=== PATIENT | female | born 1990 | race Caucasian/White ===

== ENCOUNTER 2018-01-27 00:55 | Inpatient (IN) | payer BC, OTHER ==
[~2018-01-27] VITALS: Ht 162.6 cm; Wt 54.4 kg
--- NOTE | 2018-01-27 01:30 | NUR ---
PRE-ADMISSION NOTE: Patient is a 27 year old female alert and oriented x4, ambulatory with steady gait. Speech is soft and clear. The patient appears intoxicated. VS: T: 98.3, BP: 111/78, HR 111, RR 18, RA O2SAT: 97%. Headache: "6/10". Patient noted to be disheveled, unkempt and uncombed. Patient denies History of Seizures. Patient reported Substance using : 1. Vodka "1 pint" daily x 8 month. Last used "1 pint" on 01/27/2018 "all day from 1200 to 2330". The patient is stable for admission. Explained rules and regulations of the unit. Will further assess patient in his room.
[2018-01-27 01:34] VITALS: BP 111/78
--- NOTE | 2018-01-27 01:34 | NUR ---
ADMISSION NOTE: Patient is a 27 year old female admitted to [facility] on 01/27/2018 at 0134 for ETOH (Vodka), withdrawal. Patient is ambulatory with steady gait. Patient is alert and oriented x4. Speech is soft and clear. Height: 5'4". Weight: 120 lb by standing scale. VS: T: 98.3, BP: 111/78, HR 111, RR 18, RA O2SAT: 97%. Headache: "6/10". Patient noted to be disheveled, unkempt and uncombed. She is appears intoxicated. Patient reports allergy to Penicillin, is on Regular Diet, Full Code, is on Fall and Seizures Precautions. Patient denies history of withdrawal-induced seizures. PMH: Anxiety, Depression, PTSD (2016). The patient denies SI/HI. Skin check done, noted with scratches on posterior the left and posterior right shoulders. Skin is warm and dry to touch. Patient reports Primary Care Physician: Dr. Bubba MD, and Psychiatrist.: MD David. UDS test provided. Blood Labs were drawn. Respirations even and unlabored. Lung Sounds are clear throughout. Patient denies SOB, cough, and chest pain. Bowel sounds active in all four quadrants. Patient stated that she starting using Alcohol every day since June,. Substance Use History: 1. Vodka "1 pint" daily x 8 month. Last used "1 pint" on 01/27/2018 "all day from 1200 to 2330". Patient reports that she admitted first time to detox treatment center. Patient verbalized, "My family have opportunity to move out in-laws house, and I want to be sober ". Patient would like to continue to residential treatment after detox. Patient also reports smoking a 1-4 of cigarettes daily. The patient not brought her home medications. Education for smoking cessation provided to patient. Patient oriented on the rules and policies of the unit, directed to his room and instructed on the use of the call light. Encouraged fluids as tolerated. Encouraged to attend activities groups in the morning. All needs met. Safety measures: Call light within reach, bed locked in lowest position, and padded rails up bilaterally. Will continue to monitor closely.
[2018-01-27] MEDS ORDERED: DICYCLOMINE HCL 20 MG TABLET PO PRN (01:45)
[2018-01-27] MEDS ORDERED: ONDANSETRON ODT 4 MG TAB.RAPDIS SL PRN (01:45)
[2018-01-27] MEDS ORDERED: LORAZEPAM 2 MG/1 ML VIAL IM PRN (01:45)
[2018-01-27] MEDS ORDERED: MAG HYDROX/AL HYDROX/SIMETH 30 ML LIQUID UDC PO PRN (01:45)
[2018-01-27] MEDS ORDERED: LOPERAMIDE HCL 2 MG CAPSULE PO PRN ×2 (01:45)
[2018-01-27] MEDS ORDERED: diphenhydrAMINE 50 MG CAPSULE PO PRN (01:45)
[2018-01-27] MEDS ORDERED: ONDANSETRON 4 MG/2 ML VIAL IM PRN (01:45)
[2018-01-27] MEDS ORDERED: MAGNESIUM HYDROXIDE 30 ML LIQUID UDC PO PRN (01:45)
[2018-01-27] MEDS ORDERED: LORAZEPAM 1 MG TABLET PO PRN ×2 (01:45)
[2018-01-27] MEDS ORDERED: MIRALAX 17 GM POWD.PACK PO PRN (01:45)
[2018-01-27 02:18] LABS: *URINE HCG, QUAL NEGATIVE (NEGATIVE)
[2018-01-27] MEDS: ACETAMINOPHEN 325 MG TABLET PO PRN ×3 (02:22→17:13)
--- NOTE | 2018-01-27 02:22 | NUR ---
PRN TYLENOL 650 MG PO AND PRN BENADRYL 50 MG PO ADMINISTRATION Patient c/o headache "6/10" and insomnia. PRN Tylenol 650 mg PO administrated for headache "6/10" at 0222, and PRN Benadryl 50 mg PO administrated for insomnia at 0221,as ordered with full glass of water. Patient tolerated well. Safe and calm environment with minimized noises was provided. All needs met. Safety measures in place: Call light within reach, bed is locked in lowest position, and padded bed rails up bilaterally. Will continue to monitor closely.
[2018-01-27] MEDS ORDERED: THIAMINE HCL 200 MG/2 ML VIAL IM ONE (03:00)
--- NOTE | 2018-01-27 03:22 | NUR ---
RE-ASSESSMENT PRN Tylenol 650 mg PO administrated for headache "6/10" at 022, and PRN Benadryl 50 mg PO administrated for insomnia at 022, and were effective. Patient is sleeping. RR: 16. Respirations are even and unlabored. All needs met. Safety measures in place: Call light within reach, bed is locked in lowest position, padded bed rails up bilaterally. Will continue to monitor closely.
[2018-01-27 04:00] VITALS: BP 96/54
[2018-01-27 04:50] LABS: *AMPHETAMINE, URINE NEGATIVE (NEGATIVE); *BARBITURATE, URINE NEGATIVE (NEGATIVE); *CANNABINOID, URINE POSITIVE (NEGATIVE); *COCCAINE, URINE NEGATIVE (NEGATIVE); *OPIATE, URINE NEGATIVE (NEGATIVE); *PHENCYCLIDINE SCREEN,URINE NEGATIVE (NEGATIVE)
[2018-01-27 05:12] LABS: BILIRUBIN,TOTAL 0.1 mg/dL (0.2-1.0); MAGNESIUM 1.9 mg/dL (1.8-2.4); POTASSIUM 3.9 mmol/L (3.5-5.1); TOTAL PROTEIN, SERUM 7.8 g/dL (6.4-8.2)
[2018-01-27 05:22] LABS: THYROID STIMULATING HORMONE 1.068 mIU/mL (0.358-3.740)
--- NOTE | 2018-01-27 07:15 | NUR ---
START OF SHIFT: PATIENT IS A 27 YR OLD FEMALE ADMITTED TO [facility] ON 01/27/18 FOR A MEDICALLY SUPERVISED WITHDRAWAL FROM ALCOHOL. SHE WAS ADMITTED ON PM SHIFT AND IS ASLEEP IN BED AT THIS TIME, BREATHING EVEN AND UNLABORED, SIDE RAILS UP X2. PRN MEDS REQUIRED ON PM SHIFT : TYLENOL AND BENADRYL. SHE HAS SLEPT FOR 5+ HOURS . PRN MEDICATION IS AVAILABLE AT THIS TIME. CONTINUE TO FOLLOW MD PLAN OF CARE.
--- NOTE | 2018-01-27 07:20 | NUR ---
END OF SHIFT NOTE Patient is a 27 year old female admitted to [facility] on 01/27/2018 at 0134 for ETOH (Vodka) withdrawal. Patient is ambulatory with steady gait. Patient is alert and oriented x4. Speech is soft and clear. Patient appears intoxicated. Patient noted to be disheveled, unkempt and uncombed. Patient reports to Penicillin, is on Regular Diet, Full Code, is on Fall and Seizures Precautions. Patient denies history of withdrawal-induced seizures. PMH: Anxiety, Depression , PTSD (2016). Patient denies SI/HI. Skin is warm and dry to touch. Skin noted with scratches on posterior the left and posterior right shoulders. PRN Tylenol 650 mg PO administrated for headache "6/10" at 0222, and PRN Benadryl 50 mg PO administrated for insomnia at 0221, and were effective. Patient slept for 3 hours, intake 500 ml, voided x1. All needs met. Safety measures in the place by hospital policy: Call light within reach, bed in the lowest position and locked, padded rails up x2. Patient endorsed to day shift nurse in stable condition, report given.
[2018-01-27 08:00] VITALS: BP 106/79
--- NOTE | 2018-01-27 08:35 | NUR ---
PRN ATIVAN/MOTRIN/TYLENOL ATIVAN 1MG PO GIVEN FOR S/S OF WITHDRAWAL CIWA 15 MOTRIN 600MG PO/TYLENOL 650MG PO GIVEN FOR HEADACHE 7/10 CONT TO MONITOR
[2018-01-27] MEDS: IBUPROFEN 600 MG TABLET PO PRN ×2 (08:37→17:12)
[2018-01-27] MEDS: MULTIVITAMINS,THERAPEUTIC TABLET PO SCH (08:37)
[2018-01-27] MEDS: FOLIC ACID 1 MG TABLET PO SCH (08:37)
[2018-01-27] MEDS: THIAMINE HCL 100 MG TABLET PO SCH (08:37)
[2018-01-27 09:07] LABS: BASOPHILS % (AUTO) 0.5 % (0.0-2.0); EOSINOPHILS # (AUTO) 0.1 K/uL (0.0-0.7); EOSINOPHILS % (AUTO) 1.8 % (0.0-7.0); HEMATOCRIT 44.7 % (31.2-41.9); HEMOGLOBIN 14.9 g/dL (10.9-14.3); LYMPHOCYTES # (AUTO) 2.5 K/uL (20.0-40.0); MEAN CORPUSCULAR HEMOGLOBIN 31.5 uug (24.7-32.8); MEAN CORPUSCULAR HGB CONC 33 g/dL (32.3-35.6); MEAN CORPUSCULAR VOLUME 94.5 fL (75.5-95.3); MONOCYTES # (AUTO) 0.5 K/uL (2.0-10.0); NEUTROPHILS # (AUTO) 2.7 K/uL (1.8-8.9); NEUTROPHILS % (AUTO) 46.7 % (38.5-71.5); PLATELET COUNT (AUTO) 220 K/uL (179-408); RED BLOOD CELL COUNT(AUTO) 4.73 MIL/uL (3.63-4.92); WHITE BLOOD COUNT (AUTO) 5.8 K/uL (3.8-11.8)
--- NOTE | 2018-01-27 09:35 | NUR ---
PRN REASSESS PATIENT IS LYING QUIETLY IN BED, HEADACHE RESOLVED 1/10 PAIN MEDICATIONS EFFECTIVE CIWA 11
[2018-01-27 12:00] VITALS: BP 125/91
--- NOTE | 2018-01-27 12:05 | NUR ---
PRN ATIVAN ATIVAN 2MG PO GIVEN FOR CIWA 17 AND S/S OF WITHDRAWAL, INCREASED ANXIETY, DECREASED ANXIETY, DIAPHORESIS AND HEADACHE. WILL REASSESS Addendum: 01/27/18 at 1518 by JOSE JOHNSON RN ERROR ON DECREASED ANXIETY
[2018-01-27] MEDS: LORAZEPAM 1 MG TABLET PO SCH ×3 (12:22→20:22)
--- NOTE | 2018-01-27 13:05 | NUR ---
PRN ATIVAN REASSESS PATIENT STATES THAT ATIVAN HAS HELPED DECREASE HER ANXIETY AND SHE FEELS LESS RESTLESS AND AGITATED
[2018-01-27] MEDS: ESCITALOPRAM OXALATE 10 MG TABLET PO SCH (14:05)
[2018-01-27 16:00] VITALS: BP 119/81
--- NOTE | 2018-01-27 17:10 | NUR ---
PRN MOTRIN/TYLENOL MOTRIN 600MG PO AND TYLENOL 650MG PO GIVEN FOR HEADACHE 10 WILL REASSESS
--- NOTE | 2018-01-27 18:10 | NUR ---
MOTRIN/TYLENOL REASSESS PATIENT STATES HEADACHE IS MUCH BETTER, 2/10 CONTINUE TO MONITOR
--- NOTE | 2018-01-27 18:45 | NUR ---
END OF SHIFT : PATIENT IS A 27 YR OLD FEMALE ADMITTED TO [facility] ON 01/27/18 FOR A MEDICALLY SUPERVISED WITHDRAWAL FROM ALCOHOL. SHE HAS BEEN PLACED ON A 5 DAY ATIVAN TAPER AND TODAY IS DAY 1. PATIENT TOLD PSYCHIATRIST THAT SHE WAS RELEASED FROM A 2 DAY PSYCHIATRIC UNIT YESTERDAY FOR SUICIDAL IDEATION BUT HAS NO CURRENT PLAN TO SELF HARM. PATIENT IS VERY DEPRESSED AND WAS STARTED ON LEXAPRO . PRN MEDICATIONS GIVEN THIS SHIFT: ATIVAN 1MG PO , ATIVAN 2MG PO, MOTRIN 600MG PO X2, TYLENOL 650MG PO X2 ( FOR HEADACHE). HER WITHDRAWAL SYMPTOMS INCLUDE : DIAPHORESIS, CHILLS, TREMORS , HEADACHE AND LACK OF APPETITE. SHE HAD A FLUID INTAKE OF 1200 ML, 3 VOIDS AND 1BM. LAST CIWA 18 @ 1600. CONTINUE TO FOLLOW MD PLAN OF CARE AND OFFER SUPPORT NEEDED. ENDORSED TO VISUAL MERCHANDISING COORDINATOR.
--- NOTE | 2018-01-27 19:40 | NUR ---
Start of Shift Patient Received. Patient is noted in the activities room participating in a group meeting. Per endorsement, patient continues on a modified Ativan taper. Patient was seen and evaluated by MD with right lower abdomen pain with CT orders to rule out appendicitis. Currently awaiting results. Patient received PRN Bentyl with medication noted to be effective. Last noted CIWA 11. All needs attended to promptly. Will continue to monitor. Addendum: 01/28/18 at 0100 by CONRAD ROWLAND LVN ENTERED IN ERROR
--- NOTE | 2018-01-27 19:40 | NUR ---
Start of Shift Patient Received. Patient is noted in her room awake alert and verbally responsive. Breathing even and non labored. Per endorsement, patient continues on a modified Ativan taper. She received multiple PRN medications including PRN Ativan 1mg, Ativan 2mg, Motrin X2, Tylenol X2 with medication noted to be effective. Last noted CIWA 18. All needs attended to promptly. Will continue plan of care as ordered.
[2018-01-27 20:19] VITALS: BP 114/83
[2018-01-27] MEDS: QUETIAPINE FUMARATE 25 MG TABLET PO SCH (20:22)
[2018-01-28 00:13] VITALS: BP 114/79
[2018-01-28 04:26] VITALS: BP 111/73
--- NOTE | 2018-01-28 07:16 | NUR ---
End of Shift Patient is noted in bed sleeping. Breathing even and non labored. patient continues on a modified Ativan taper. No PRN medication administered. Patient is noted with flat affect and depressed mood. Last noted CIWA 15. Patient is noted to sleep a total of 6 hours. All needs attended to promptly. Will continue plan of care as ordered.
--- NOTE | 2018-01-28 07:30 | NUR ---
Start of Shift Note Pt. is a 27 y/o female admitted for the medically managed withdrawal from ETOH. Pt. was placed on a 4 day ativan taper to manage her withdrawal symptoms. Endorse pt.'s behavior from previous shift was depressed with a sad effect. Received pt. in room laying bed sitting up with her eyes open. Pt. presents with flushed facial skin, fine hand tremors, anxious with a depressed affect. Upon approach pt. is guarded and withdrawn. Pt. hair is unkempt and she has dark rings around her eyes. Educated pt. on treatment plan and medication regiment. Pt. verbalized understanding. No PRN's given during previous shift. Last CIWA was 15. Encouraged pt. to verbalize concerns and emotions. Will continue to monitor pt.'s behavior for safety.
[2018-01-28 08:00] VITALS: BP 114/74
[2018-01-28] MEDS ORDERED: TUBERCULIN,PURIF.PROT.DERIV. 5 TU/0.1 ML TEST ID ONE (09:00)
[2018-01-28] MEDS: THIAMINE HCL 100 MG TABLET PO SCH (09:07)
[2018-01-28] MEDS: ESCITALOPRAM OXALATE 10 MG TABLET PO SCH (09:07)
[2018-01-28] MEDS: FOLIC ACID 1 MG TABLET PO SCH (09:08)
[2018-01-28] MEDS: LORAZEPAM 1 MG TABLET PO SCH ×2 (09:08→12:00)
[2018-01-28] MEDS: MULTIVITAMINS,THERAPEUTIC TABLET PO SCH (09:08)
[2018-01-28] MEDS: CLONIDINE HCL 0.1 MG TABLET PO PRN ×2 (09:35→17:11)
[2018-01-28] MEDS: ACETAMINOPHEN 325 MG TABLET PO PRN (09:35)
--- NOTE | 2018-01-28 09:35 | NUR ---
PRN Medication During morning medication pass, pt. verbalize a headache of 4/10 and feelings of anxiety. Pt. given Clonidine 0.1mg, Tylenol 650mg at this time to help manage her anxiety and headache. Will continue to monitor pt.'s behavior for safety and medication effectiveness.
--- NOTE | 2018-01-28 10:35 | NUR ---
PRN Re-Assessment Pt. in room getting ready to step out into the [address]. Questioned pt. regarding anxiety and headache. Pt. verbalized "I feel much better thank you." Pt. currently rates pain of 0/10. Medication effective, will continue to monitor pt.'s behavior for safety.
[2018-01-28 12:00] VITALS: BP 120/84
[2018-01-28 12:06] LABS: HEPATITIS B SURFACE AG Negative (Negative)
[2018-01-28 16:00] VITALS: BP 119/78
[2018-01-28] MEDS ORDERED: LORAZEPAM 1 MG TABLET PO SCH ×2 (17:00→21:00)
--- NOTE | 2018-01-28 17:11 | NUR ---
PRN Medication During medication pass pt. verbalized feelings of anxiety. Gave pt. Clonidine 0.1mg PO at this time. Will continue to monitor pt.'s behavior for safety and medication effectiveness.
--- NOTE | 2018-01-28 18:15 | NUR ---
PRN Re-Assessment Pt. states she feels much less anxious than before. Medication effective. Will continue to monitor pt.'s behavior for safety.
[2018-01-28 20:00] VITALS: BP 105/72
--- NOTE | 2018-01-28 20:00 | NUR ---
START OF SHIFT NOTE RECEIVED REPORT FROM DAY SHIFT NURSE. PATIENT IS A 27 YEAR OLD FEMALE ADMITTED FOR ETOH WITHDRAWAL. PATIENT IS ON 4 DAY MODIFIED ATIVAN TAPER. PATIENT WAS GIVEN PRN CLONIDINE. LAST CIWA 15. PATIENT PRESENTS WITH FLAT AFFECT, DEPRESSED MOOD, AVOIDANT EYE CONTACT, DISHEVELED, EMOTIONAL , GUARDED, RESTRICTED, CRYING AND ANXIOUS . RELAXATION TECHNIQUE AND POSITIVE ENCOURAGEMENT PROVIDED. SAFETY MEASURES IN PLACE. CALL LIGHT IN REACH. WILL CONTINUE TO MONITOR.
[2018-01-28] MEDS: QUETIAPINE FUMARATE 25 MG TABLET PO SCH (20:05)
[2018-01-29] VITALS: BP 103/67
--- NOTE | 2018-01-29 | NUR ---
CIWA DEFERRED PATIENT SLEEPING. RESPIRATION EVEN AND UNLABORED. WILL CONTINUE TO MONITOR.
[2018-01-29 04:00] VITALS: BP 94/54
--- NOTE | 2018-01-29 04:00 | NUR ---
CIWA DEFERRED PATIENT SLEEPING. RESPIRATION EVEN AND UNLABORED. WILL CONTINUE TO MONITOR.
--- NOTE | 2018-01-29 07:23 | NUR ---
END OF SHIFT NOTE PATIENT SLEPT 8 HOURS. FLUID INTAKE 500 ML. VOIDED X 2. NO BM. MONITORED PATIENT THROUGHOUT SHIFT. PATIENT PRESENTED WITH FLAT AFFECT, DEPRESSED MOOD, AVOIDANT EYE CONTACT, DISHEVELED, EMOTIONAL , GUARDED, RESTRICTED, CRYING AND ANXIOUS . RELAXATION TECHNIQUE AND POSITIVE ENCOURAGEMENT PROVIDED. IN HER ROOM MOST OF THE SHIFT, SHE TENDS TO ISOLATE SELF. ATIVAN TAPER GIVEN ORDERED WITH NO ADVERSE REACTION. PATIENT DID NOT REQUIRE PRN MEDICATION . SAFETY MEASURES IN PLACE. CALL LIGHT IN REACH. WILL CONTINUE TO MONITOR. LAST CIWA 14.
--- NOTE | 2018-01-29 07:50 | NUR ---
START OF SHIFT NOTE Received report from night nurse,patient admitted for ETOH withdrawal and patient continues with 5 days Ativan taper tolerating well. Per endorsement patient did not receive any PRN'S, slept for 8 hours, last CIWA was 14. Received patient alert awake, anxious, agitated,sweats, flat facial expression, bilateral hand tremors noted, linens and empty bottles on the floor. Patient due for schedule medications. Educated patient about importance of attending groups activities. Patient verbalized understanding. All safety measures in place. Will cont to monitor.
[2018-01-29 08:00] VITALS: BP 115/74
[2018-01-29] MEDS: ESCITALOPRAM OXALATE 10 MG TABLET PO SCH (08:23)
[2018-01-29] MEDS: MULTIVITAMINS,THERAPEUTIC TABLET PO SCH (08:23)
[2018-01-29] MEDS: THIAMINE HCL 100 MG TABLET PO SCH (08:23)
[2018-01-29] MEDS: FOLIC ACID 1 MG TABLET PO SCH (08:23)
[2018-01-29] MEDS: LORAZEPAM 1 MG TABLET PO SCH ×3 (08:24→21:05)
[2018-01-29 12:00] VITALS: BP 124/88
[2018-01-29 16:00] VITALS: BP 118/82
--- NOTE | 2018-01-29 18:50 | NUR ---
PRN TYLENOL/MOTRIN MOTRIN 600MG PO/ TYLENOL 650MG PO GIVEN FOR HEADACHE 02/21 WILL ENDORSE TO COMMISSIONED SALES ASSOCIATE TO REASSESS
[2018-01-29] MEDS: IBUPROFEN 600 MG TABLET PO PRN (18:51)
[2018-01-29] MEDS: ACETAMINOPHEN 325 MG TABLET PO PRN (18:52)
--- NOTE | 2018-01-29 19:11 | NUR ---
END OF SHIFT NOTE Patient is AOX4. Patient is a 27 year old female admitted for ETOH withdrawal. Patient continues with Ativan taper tolerating well. During shift patient received PRN Tylenol and Motrin will endorse to night nurse to reassess the pt. Patient attended groups activities. Patient remained compliant with treatment plan and medication regime. All safety measures secured. Met all needs. Endorse pt to night nurse in stable condition.
--- NOTE | 2018-01-29 19:30 | NUR ---
START OF SHIFT Pt is a 27 year old female admitted for ETOH withdrawal.She is A/A/O X 4; continues with Ativan taper and is tolerating well. During day shift patient received PRN Tylenol and Motrin and states that she does not have any pain at this time. Pt is compliant with treatment plan and medication regime. All safety measures in place with call [place] within reach,will continue to monitor.
[2018-01-29 20:00] VITALS: BP 137/83
[2018-01-29] MEDS: QUETIAPINE FUMARATE 25 MG TABLET PO SCH (21:06)
[2018-01-30] VITALS: BP 103/67
--- NOTE | 2018-01-30 | NUR ---
CIWA DEFERRED PATIENT SLEEPING COMFORTABLY IN BED. RESPIRATION EVEN AND NON LABORED.V/S ARE STABLE.CIWA DEFERRED D/T PT BEING ASLEEP.WILL CONTINUE TO MONITOR.
[2018-01-30 04:00] VITALS: BP 101/62
--- NOTE | 2018-01-30 04:00 | NUR ---
CIWA DEFERRED PATIENT SLEEPING COMFORTABLY IN BED. RESPIRATION EVEN AND NON LABORED.V/S ARE STABLE.CIWA DEFERRED D/T PT BEING ASLEEP.WILL CONTINUE TO MONITOR.
--- NOTE | 2018-01-30 06:52 | NUR ---
END OF SHIFT Pt is a 27 year old female admitted for ETOH withdrawal. Patient continues with Ativan taper and is tolerating well. Pt remains compliant with treatment plan and medication regime. No PRN meds given last night.Last CIWA was 8 at 1999.Pt slept 8 hours,fluid intake was 1240 mls,voided x 2.All safety measures secured. Met all needs. Endorsed pt to day shift nurse in stable condition.
--- NOTE | 2018-01-30 07:20 | NUR ---
Start of Shift Notes: Received patient in her room. Arousable when her name is called. Alert and oriented x 4. She appears disheveled. Room is messy and odorous. Encouraged maintenance of personal hygiene and space. She states "I'll wait for my medications whenever you are ready." Patient is a 27 year old female admitted for ETOH withdrawal who was placed on a 4-day modified Ativan taper as ordered. No adverse reactions noted. Educated patient on her current plan of care for the day and her medication regimen. Encouraged maintenance of personal hygiene and space. No PRNS given during the night. Last CIWA 8. Slept for 8 hours. All needs met and attended. Will continue to monitor closely.
[2018-01-30 08:00] VITALS: BP 108/78
[2018-01-30] MEDS: MULTIVITAMINS,THERAPEUTIC TABLET PO SCH (08:45)
[2018-01-30] MEDS: FOLIC ACID 1 MG TABLET PO SCH (08:45)
[2018-01-30] MEDS: ESCITALOPRAM OXALATE 10 MG TABLET PO SCH (08:46)
[2018-01-30] MEDS: THIAMINE HCL 100 MG TABLET PO SCH (08:46)
[2018-01-30] MEDS ORDERED: LORAZEPAM 1 MG TABLET PO SCH (09:00)
[2018-01-30 12:00] VITALS: BP 121/83
--- NOTE | 2018-01-30 13:00 | NUR ---
Mid Shift Notes: CIWA 11@ 1200, patient presented with anxiety, agitation, mild sweating, tremors felt on BUE. She is currently in the smoking patio at this time. VS stable.
[2018-01-30] MEDS ORDERED: GABA-534 PO (13:53)
[2018-01-30] MEDS ORDERED: ESCI10TA PO (13:53)
[2018-01-30] MEDS ORDERED: CLON0.1T14 PO (13:53)
[2018-01-30] MEDS ORDERED: IBUP-1955 PO (13:53)
[2018-01-30] MEDS ORDERED: GABAPENTIN 300 MG CAPSULE PO SCH (15:00)
[2018-01-30 16:00] VITALS: BP 112/78
--- NOTE | 2018-01-30 19:01 | NUR ---
End of Shift Notes: Patients taper was modified today by MD Kimbrough with the 4-day Ativan taper to be completed today. Tolerated taper well without any adverse reactions noted. Patient will be discharging tomorrow to [facility]. VS monitored closely. No significant abnormalities noted. Withdrawal symptoms were closely monitored. Initial CIWA 14, patient presented with anxiety, agitation, sweats and tremors. Last CIWA 9. Patient verbalizes that Ativan has been effective in reducing her withdrawal symptoms. Seen and examined by Dr. Kimbrough and started patient on Gabapentin as ordered. Compliant with care and treatment. Pleasant to staff and to her peers. Appetite good. All needs met and attended. Will continue to monitor closely.
--- NOTE | 2018-01-30 19:30 | NUR ---
START OF SHIFT Pt is a 27 year old female admitted for ETOH withdrawal.She is A/A/O X 4.Pt completed her Ativan taper and is scheduled for DC tomorrow.Last CIWA was 9.Pt received in the [facility] on approach and is looking forward for her DC tomorrow. Pt is compliant with treatment plan and medication regime. All safety measures in place with call [place] within reach,will continue to monitor.
[2018-01-30 20:00] VITALS: BP 123/86
[2018-01-30] MEDS: GABAPENTIN 300 MG CAPSULE PO SCH (21:02)
[2018-01-30] MEDS: QUETIAPINE FUMARATE 25 MG TABLET PO SCH (21:02)
[2018-01-31] VITALS: BP 114/73
--- NOTE | 2018-01-31 | NUR ---
CIWA DEFERRED PATIENT SLEEPING COMFORTABLY IN BED. RESPIRATION EVEN AND NON LABORED.V/S ARE STABLE.CIWA DEFERRED D/T PT BEING ASLEEP.WILL CONTINUE TO MONITOR.
--- NOTE | 2018-01-31 04:00 | NUR ---
CIWA DEFERRED PATIENT SLEEPING COMFORTABLY IN BED. RESPIRATION EVEN AND NON LABORED.V/S REFUSED.CIWA DEFERRED D/T PT BEING ASLEEP.WILL CONTINUE TO MONITOR.
--- NOTE | 2018-01-31 07:16 | NUR ---
END OF SHIFT Pt is a 27 year old female admitted for ETOH withdrawal.She is A/A/O X 4.Pt is scheduled for DC today. Pt has been compliant with treatment plan and medication regime.No PRN meds given last night.Pt slept 8 hrs,fluid intake was 500 mls,voided x 1 .Last CIWA=8. All safety measures in place with call [place] within reach,will endorse care to day shift nurse.
--- NOTE | 2018-01-31 07:22 | NUR ---
Start of Shift Notes: Received patient in her room. Arousable when her name is called. Alert and oriented x 4. She appears disheveled. Room is messy and odorous. Encouraged maintenance of personal hygiene and space. She states "I'm ready whenever you are." Patient is a 27 year old female admitted for ETOH withdrawal who was placed on a 4-day modified Ativan taper as ordered. No adverse reactions noted. She completed her taper yesterday and will be discharging today. Educated patient on the discharge process. Encouraged maintenance of personal hygiene and space. Verbalized good understanding of all teachings. No PRNS given during the night. Last CIWA 8. Slept for 8 hours. All needs met and attended. Will continue to monitor closely.
[2018-01-31 08:00] VITALS: BP 100/74
[2018-01-31] MEDS: THIAMINE HCL 100 MG TABLET PO SCH (08:03)
[2018-01-31] MEDS: FOLIC ACID 1 MG TABLET PO SCH (08:03)
[2018-01-31] MEDS: MULTIVITAMINS,THERAPEUTIC TABLET PO SCH (08:03)
[2018-01-31] MEDS: ESCITALOPRAM OXALATE 10 MG TABLET PO SCH (08:03)
[2018-01-31] MEDS: GABAPENTIN 300 MG CAPSULE PO SCH (08:03)
[2018-01-31] MEDS ORDERED: LORAZEPAM 1 MG TABLET PO SCH (09:00)
[2018-01-31 09:03] VITALS: BP 100/71
[2018-01-31] MEDS: CLONIDINE HCL 0.1 MG TABLET PO PRN (09:03)
--- NOTE | 2018-01-31 09:03 | NUR ---
Clonidine 0.1mg PO given: Patient noted with increased anxiety/agitation due to her discharge. She was also noted with sweaty palms and pacing around the hallway. Reassurance was provided. Non-pharmacological interventions provided but ineffective. Medicated patient with Clonidine 0.1mg PO as ordered. Will monitor for effectiveness.
--- NOTE | 2018-01-31 09:45 | NUR ---
Re-assessment: Clonidine/Discharged: Patient education provided regarding her discharge instructions and her prescriptions. VS stable. CIWA 7 due to anxiety. PRN Clonidine was effective in reducing her anxiety. She states she was anxious about the discharge process. She was given reassurance. All necessary dc paperwork were signed and placed inside blue/black duffel bag. All clothings and valuables were returned to the patient. She verbalized good understanding of all teachings. ROSTER CLERK cabinet checked. Cassette checked. She was escorted off the unit by a female ROSTER CLERK and picked up by [facility] to be transported to [facility]. Patient left in stable condition.
== END 2018-01-31 09:45 | disposition other institution (70) | DRG 895 ==
LOC: SRC 00:55
PROVIDERS: ADMIT Internal Medicine; ATTEND Internal Medicine
PROC: HZ2ZZZZ Detoxification Services for Substance Abuse Treatment (ICD-10-PCS; principal; 2018-01-27)
PROC: HZ41ZZZ Group Counseling for Substance Abuse Treatment, Behavioral (ICD-10-PCS; 2018-01-28)
DX: F10.232 Alcohol dependence with withdrawal with perceptual disturbance (principal); F33.3 Major depressive disorder, recurrent, severe with psychotic symptoms; K70.10 Alcoholic hepatitis without ascites; Y90.6 Blood alcohol level of 120-199 mg/100 ml; F41.9 Anxiety disorder, unspecified; Z81.1 Family history of alcohol abuse and dependence; F17.210 Nicotine dependence, cigarettes, uncomplicated
CPT/HCPCS: 36415; 70030-TC; 80307; 80349; 83690; 83735; 84443; 84703; 85025; 86580; 86592; 86705; 86803; 87340; 87806; A4663; G0480; J3411; J7030; Q0163